=== PATIENT | female | born 1985 | race Hispanic/Latino ===

== ENCOUNTER 2018-01-24 19:20 | Inpatient (IN) | payer MEDICAID ==
[2018-01-24] MEDS ORDERED: LACTATED RINGERS 1000ML 1,000 ML IV PRN (21:06)
[2018-01-24] MEDS ORDERED: AMPICILLIN 2GM+NS 100ML 100 ML IV SCH (21:15)
[2018-01-24 21:40] LABS: BILIRUBIN,URINE NEGATIVE (NEGATIVE); COLOR,URINE YELLOW (YELLOW); GLUCOSE, URINE (UA) 100 mg/dL (NEGATIVE); KETONES,URINE 5 mg/dL (NEGATIVE); LEUKOCYTE ESTERASE ,URINE MODERATE (NEGATIVE); NITRATE,URINE NEGATIVE (NEGATIVE); OCCULT BLOOD,URINE SMALL (NEGATIVE); PROTEIN,URINE TRACE (NEGATIVE)
[2018-01-24 21:43] LABS: APPEARANCE,URINE CLOUDY (CLEAR)
[2018-01-24 22:04] LABS: RBC,URINE None Seen /HPF (0-1)
[2018-01-24 22:05] LABS: BACTERIA,URINE Many /HPF (None Seen); SQUAMOUS EPITHELIAL CELL,UR 30-50 /HPF (0-2); WBC,URINE 26-50 /HPF (0-1)
[2018-01-24] MEDS ORDERED: AMPICILLIN 2GM+NS 100ML 100 ML IV ONE (23:02)
[2018-01-24 23:04] LABS: AMPHET/METH SCREEN,URINE NEGATIVE (NEGATIVE); BARBITURATE SCREEN, URINE NEGATIVE (NEGATIVE); BENZODIAZEPINES SCREEN,URINE NEGATIVE (NEGATIVE); CANNABINOID SCREEN,URINE NEGATIVE (NEGATIVE); COCAINE SCREEN,URINE NEGATIVE (NEGATIVE); OPIATE SCREEN,URINE NEGATIVE (NEGATIVE); PHENCYCLIDINE SCREEN,URINE NEGATIVE (NEGATIVE)
[2018-01-24 23:51] LABS: HEMATOCRIT 35.6 % (36-48); MEAN CORPUSCULAR HEMOGLOBIN 30.4 pg (27.0-33.0); MEAN CORPUSCULAR HGB CONC 33.5 g/dL (32.0-36.0); MEAN CORPUSCULAR VOLUME 90.6 fL (79-99); PLATELET COUNT (AUTO) 96 K/uL (130-400); RED BLOOD CELL COUNT(AUTO) 3.93 MIL/uL (4.00-5.50); RED CELL DISTRIBUTION WIDTH 16.3 % (11.0-15.5); WHITE BLOOD COUNT (AUTO) 7.4 K/uL (4.8-10.8)
[2018-01-25] MEDS ORDERED: OXYTOCIN 10 USP UNITS/ML ONE ×2 (02:30→10:56)
[2018-01-25] MEDS ORDERED: LACTATED RINGERS 1000ML 1,000 ML IV ONE ×2 (02:30→10:55)
[2018-01-25] MEDS ORDERED: OXYTOCIN 10 USP UNITS/ML 20 UNIT in LACTATED RINGERS 1000ML 1,000 ML IV SCH (03:00)
[2018-01-25] MEDS: AMPICILLIN 1GM+NS 50ML 50 ML IV SCH ×3 (03:43→13:00)
[2018-01-25] MEDS ORDERED: LIDOCAINE HCL 1% 20 ML VIAL ONE (08:01)
[2018-01-25] MEDS: MEPERIDINE-PF 25 MG/ML SYG IVP SCH (08:52)
[2018-01-25] MEDS: PROMETHAZINE HCL 25 MG/ML 1ML AMPULE IM SCH (08:54)
[2018-01-25] MEDS ORDERED: OXYTOCIN-LR 20 UNITS/1000 ML 1,000 ML IV SCH (10:30)
[2018-01-25] MEDS ORDERED: BENZOCAINE/LANOLIN/ALOE VERA 60 ML AEROSOL TP PRN (10:30)
[2018-01-25] MEDS ORDERED: DIPH,PERTUSS(ACELL),TET VAC/PF 0.5 ML VIAL IM PRN (10:30)
[2018-01-25] MEDS ORDERED: LANOLIN 30GM OINTMENT TP PRN (10:30)
[2018-01-25] MEDS ORDERED: MEASLES/MUMPS/RUBELLA VACCINE, LIVE 0.5 ML/VIAL SQ PRN (10:30)
[2018-01-25] MEDS ORDERED: WITCH HAZEL 1 PAD TP PRN (10:30)
[2018-01-25 11:31] VITALS: BP 106/58
[2018-01-25] MEDS: IBUPROFEN 600 MG TABLET PO PRN ×2 (11:36→18:05)
[2018-01-25] MEDS ORDERED: FERR-82 PO (11:54)
[2018-01-25] MEDS ORDERED: GLYB5TAB8 PO (11:54)
[2018-01-25] MEDS ORDERED: PREN1COM14 PO (11:54)
[2018-01-25 15:55] VITALS: BP 123/57
[2018-01-25] MEDS ORDERED: ACETAMINOPHEN 325 MG TAB PO PRN (16:15)
[2018-01-25 20:48] VITALS: BP 108/60
[2018-01-25] MEDS: DOCUSATE SODIUM 100 MG CAP PO SCH (20:59)
[2018-01-25 23:31] VITALS: BP 103/52
[2018-01-26] MEDS: IBUPROFEN 600 MG TABLET PO PRN ×3 (03:41→18:00)
[2018-01-26 03:55] VITALS: BP 104/62
[2018-01-26 05:45] LABS: HEMATOCRIT 30.9 % (36-48); MEAN CORPUSCULAR HGB CONC 33.9 g/dL (32.0-36.0); MEAN CORPUSCULAR VOLUME 91.5 fL (79-99); PLATELET COUNT (AUTO) 87 K/uL (130-400); RED BLOOD CELL COUNT(AUTO) 3.38 MIL/uL (4.00-5.50); RED CELL DISTRIBUTION WIDTH 16.5 % (11.0-15.5); WHITE BLOOD COUNT (AUTO) 7.3 K/uL (4.8-10.8)
[2018-01-26 07:48] VITALS: BP 97/50
[2018-01-26 08:21] LABS: HEPATITIS Bs ANTIGEN SCREEN P Negative (Negative)
[2018-01-26] MEDS: MEPERIDINE-PF 25 MG/ML SYG IVP SCH (08:45)
[2018-01-26] MEDS: PROMETHAZINE HCL 25 MG/ML 1ML AMPULE IM SCH (08:45)
[2018-01-26] MEDS: DOCUSATE SODIUM 100 MG CAP PO SCH ×2 (09:10→20:48)
[2018-01-26 11:33] VITALS: BP 121/70
[2018-01-26 15:25] VITALS: BP 105/53
[2018-01-26 20:14] VITALS: BP 109/60
[2018-01-27 00:01] VITALS: BP 97/59
[2018-01-27 03:59] VITALS: BP 129/76
[2018-01-27 07:48] VITALS: BP 122/57
[2018-01-27] MEDS: DOCUSATE SODIUM 100 MG CAP PO SCH (09:11)
[2018-01-27] MEDS: IBUPROFEN 600 MG TABLET PO PRN ×2 (09:15→15:59)
[2018-01-27 11:45] VITALS: BP 125/71
[2018-01-27 15:56] VITALS: BP 138/83
== END 2018-01-27 16:05 | disposition home or self-care (01) | DRG 560 ==
LOC: LDH 19:20 → WSH 01-25 11:39
PROVIDERS: ADMIT Obstetrics & Gynecology; ATTEND Obstetrics & Gynecology
PROC: 10E0XZZ Delivery of Products of Conception, External Approach (ICD-10-PCS; principal; 2018-01-25)
PROC: 0KQM0ZZ Repair Perineum Muscle, Open Approach (ICD-10-PCS; 2018-01-25)
PROC: 10907ZC Drainage of Amniotic Fluid, Therapeutic from Products of Conception, Via Natural or Artificial Opening (ICD-10-PCS; 2018-01-25)
PROC: 3E0234Z Introduction of Serum, Toxoid and Vaccine into Muscle, Percutaneous Approach (ICD-10-PCS; 2018-01-25)
DX: O99.824 Streptococcus B carrier state complicating childbirth (principal); O24.425 Gestational diabetes mellitus in childbirth, controlled by oral hypoglycemic drugs; O69.81X0 Labor and delivery complicated by cord around neck, without compression, not applicable or unspecified; O70.1 Second degree perineal laceration during delivery; Z37.0 Single live birth; Z3A.39 39 weeks gestation of pregnancy; Z3A.40 40 weeks gestation of pregnancy; O77.0 Labor and delivery complicated by meconium in amniotic fluid; Z23 Encounter for immunization
CPT/HCPCS: 36415; 76805; 80305; 81001; 82947; 82948; 85027; 86592; 86850; 86900; 86901; 87340; 90715; A4351; J0290; J2175; J2550; J2590; J7120

== ENCOUNTER 2023-03-14 14:17 | Inpatient (IN) | payer MEDICAID, OTHER ==
[~2023-03-14] VITALS: Ht 165.1 cm; Wt 63.8 kg
[~2023-03-14 14:17] MED LIST: FERR-82 PO; GLYB5TAB8 PO; PREN1COM14 PO
[2023-03-14 16:00] LABS: BASOPHILS % (AUTO) 0.2 % (0.0-5.0); HEMATOCRIT 41.1 % (36-48); LYMPHOCYTES % (AUTO) 5.4 % (21.0-51.0); MEAN CORPUSCULAR HEMOGLOBIN 30.6 pg (27.0-33.0); MEAN CORPUSCULAR HGB CONC 33.3 g/dL (32.0-36.0); MEAN CORPUSCULAR VOLUME 91.7 fL (79-99); MONOCYTES % (AUTO) 3.8 % (3.0-13.0); NEUTROPHILS % (AUTO) 90.1 % (40.0-77.0); PLATELET COUNT (AUTO) 176 K/uL (130-400); RED BLOOD CELL COUNT(AUTO) 4.48 MIL/uL (4.00-5.50); WHITE BLOOD COUNT (AUTO) 17.2 K/uL (4.8-10.8)
[2023-03-14 16:22] LABS: ALANINE AMINOTRANSFERASE 11 U/L (12-78); ALBUMIN 3.7 g/dL (3.5-5.0); ASPARTATE AMINOTRANSFERASE 9 U/L (10-37); CARBON DIOXIDE 26 mmol/L (21-32); CHLORIDE 96 mmol/L (101-111); CREATININE 0.7 mg/dL (0.5-1.5); GLOMERULAR FILTR. RATE CALC 113 mL/min (>90); GLUCOSE,RANDOM 118 mg/dL (70-105); SODIUM SERUM 133 mmol/L (136-145); TOTAL PROTEIN, SERUM 7.9 g/dL (6.0-8.3); UREA NITROGEN, BLOOD 7 mg/dL (7-18)
[2023-03-14 16:30] LABS: LIPASE < 50 U/L (114-286)
[2023-03-14] MEDS ORDERED: ZOSYN 3.375GM+NS 50ML 50 ML IVPB STA (16:37)
[2023-03-14 16:38] LABS: APPEARANCE,URINE CLOUDY (CLEAR); BILIRUBIN,URINE NEGATIVE (NEGATIVE); COLOR,URINE LIGHT-ORANGE (YELLOW); GLUCOSE, URINE (UA) NEGATIVE (NEGATIVE); KETONES,URINE NEGATIVE (NEGATIVE); LEUKOCYTE ESTERASE ,URINE 75 Leu/uL (NEGATIVE); NITRATE,URINE NEGATIVE (NEGATIVE); OCCULT BLOOD,URINE SMALL (NEGATIVE); PH,URINE 5.5 (5.0-8.0); PROTEIN,URINE 20 mg/dL (NEGATIVE); UROBILINOGEN,URINE 0.2 mg/dL (0.2-1.0)
[2023-03-14 16:43] LABS: HCG,QUALITATIVE URINE NEGATIVE (NEGATIVE)
[2023-03-14 16:52] LABS: BACTERIA,URINE MOD /HPF (None Seen); MUCUS,URINE MOD LPF (None Seen); SQUAMOUS EPITHELIAL CELL,UR MOD /HPF (0-2)
[2023-03-14] MEDS ORDERED: MORPHINE 4 MG SYG IVP ONE (17:00)
[2023-03-14] MEDS ORDERED: 0.9%NACL 1000ML 1,710 ML IV ONE (17:00)
[2023-03-14] MEDS ORDERED: PANTOPRAZOLE 40 MG/VIAL IVP ONE (17:00)
[2023-03-14] MEDS ORDERED: ACETAMINOPHEN 500 MG TABLET PO ONE (17:00)
[2023-03-14] MEDS ORDERED: POTASSIUM BICARB/CIT AC 25 MEQ TABLET.EFF PO ONE (17:00)
[2023-03-14] MEDS ORDERED: KETOROLAC 30MG VIAL (30MG/ML) IVP ONE (17:00)
[2023-03-14] MEDS ORDERED: IOHEXOL-350 75 ML VIAL IV ONE (17:20)
[2023-03-14] MEDS ORDERED: ACETAMINOPHEN 325 MG TAB PO PRN ×2 (19:30)
[2023-03-14] MEDS ORDERED: ONDANSETRON 4MG INJ IV PRN (19:30)
[2023-03-14] MEDS ORDERED: ZOSYN 3.375GM +NS 50ML IVPB SCH (19:30)
[2023-03-14] MEDS ORDERED: 0.9%NACL 50ML IV SCH (21:00)
[2023-03-14] MEDS: LACTATED RINGERS 1000ML 1,000 ML IV SCH (21:19)
[2023-03-14] MEDS: FAMOTIDINE 20MG VIAL IV SCH (21:20)
[2023-03-14] MEDS: KETOROLAC 15MG/ML VIAL (15MG/ML) IM PRN (21:20)
[2023-03-14] MEDS ORDERED: MAGNESIUM 2GM PREMIX 50ML 50 ML IV PRN (21:30)
[2023-03-14] MEDS ORDERED: POTASSIUM CHLORIDE 20MEQ/100ML 100 ML IV PRN (21:30)
[2023-03-14] MEDS: METRONIDAZOLE 500MG/100ML BAG 100 ML IVPB SCH (23:35)
[2023-03-15] MEDS ORDERED: POTASSIUM CHLORIDE 10% ELIXIR 20 MEQ/15 ML UDCUP PO PRN (00:30)
[2023-03-15] MEDS ORDERED: POTASSIUM CHLORIDE 10MEQ/100ML 100 ML IV PRN (00:30)
[2023-03-15] MEDS: KCL 20 MEQ ERTAB PO PRN ×2 (02:04→20:52)
[2023-03-15] MEDS: ZOSYN 3.375GM +NS 50ML IVPB SCH ×3 (02:04→18:22)
[2023-03-15] MEDS: KETOROLAC 15MG/ML VIAL (15MG/ML) IM PRN ×2 (03:33→13:17)
[2023-03-15] MEDS: METRONIDAZOLE 500MG/100ML BAG 100 ML IVPB SCH ×3 (06:23→23:18)
[2023-03-15 07:26] LABS: MEAN CORPUSCULAR HEMOGLOBIN 30.5 pg (27.0-33.0); MEAN CORPUSCULAR HGB CONC 32.8 g/dL (32.0-36.0); RED BLOOD CELL COUNT(AUTO) 3.44 MIL/uL (4.00-5.50); RED CELL DISTRIBUTION WIDTH 14.5 % (11.0-15.5); WHITE BLOOD COUNT (AUTO) 12.7 K/uL (4.8-10.8)
[2023-03-15 07:38] LABS: INR 0.94 (0.85-1.15)
[2023-03-15 07:39] LABS: PARTIAL THROMBOPLASTIN TIME 37.9 SEC (26.3-35.5)
[2023-03-15 07:41] LABS: ALBUMIN 2.5 g/dL (3.5-5.0); BILIRUBIN,DIRECT 0.3 mg/dL (0.0-0.3); CREATININE 0.7 mg/dL (0.5-1.5); MAGNESIUM 1.6 mg/dL (1.80-2.40); POTASSIUM 3.3 mmol/L (3.5-5.1)
[2023-03-15] MEDS: FAMOTIDINE 20MG VIAL IV SCH (07:51)
[2023-03-15] MEDS: LACTATED RINGERS 1000ML 1,000 ML IV SCH ×2 (08:42→18:21)
[2023-03-15] MEDS: PANTOPRAZOLE 40 MG/VIAL IVP SCH (08:46)
[2023-03-15 09:33] LABS: CRP QUANTITATIVE 226.7 mg/L (0.00-9.0)
[2023-03-15] MEDS ORDERED: MORPHINE 2 MG SYG IVP PRN (21:30)
[2023-03-15] MEDS ORDERED: MORPHINE 2 MG SYG ONE (21:30)
[2023-03-15 23:30] VITALS: BP 137/70
[2023-03-16] MEDS: ZOSYN 3.375GM +NS 50ML IVPB SCH ×2 (00:38→08:18)
[2023-03-16 05:00] VITALS: BP 104/57
[2023-03-16] MEDS: METRONIDAZOLE 500MG/100ML BAG 100 ML IVPB SCH ×2 (06:24→14:00)
[2023-03-16 06:29] LABS: BASOPHILS % (AUTO) 0.3 % (0.0-5.0); EOSINOPHILS % (AUTO) 0.6 % (0.0-8.0); HEMATOCRIT 30.4 % (36-48); LYMPHOCYTES % (AUTO) 12.3 % (21.0-51.0); MEAN CORPUSCULAR HEMOGLOBIN 30.5 pg (27.0-33.0); MEAN CORPUSCULAR HGB CONC 32.6 g/dL (32.0-36.0); MEAN CORPUSCULAR VOLUME 93.5 fL (79-99); MONOCYTES % (AUTO) 5.7 % (3.0-13.0); NEUTROPHILS % (AUTO) 80.7 % (40.0-77.0); PLATELET COUNT (AUTO) 132 K/uL (130-400); RED BLOOD CELL COUNT(AUTO) 3.25 MIL/uL (4.00-5.50); RED CELL DISTRIBUTION WIDTH 14.5 % (11.0-15.5); WHITE BLOOD COUNT (AUTO) 9.6 K/uL (4.8-10.8)
[2023-03-16 06:51] LABS: ALBUMIN 2.4 g/dL (3.5-5.0); CREATININE 0.6 mg/dL (0.5-1.5); POTASSIUM 3.5 mmol/L (3.5-5.1); TOTAL PROTEIN, SERUM 5.9 g/dL (6.0-8.3)
[2023-03-16 08:00] VITALS: BP 121/80
[2023-03-16] MEDS: PANTOPRAZOLE 40 MG/VIAL IVP SCH (08:17)
[2023-03-16] MEDS: LACTATED RINGERS 1000ML 1,000 ML IV SCH ×2 (08:18→13:00)
[2023-03-16] MEDS: KCL 20 MEQ ERTAB PO PRN ×2 (08:55→11:39)
[2023-03-16] MEDS ORDERED: AMOX1TAB15 PO (10:02)
[2023-03-16] MEDS ORDERED: CLAR-44 PO (10:02)
[2023-03-16] MEDS ORDERED: OMEP20CA12 PO (10:02)
[2023-03-16 12:00] VITALS: BP 142/83
== END 2023-03-16 18:00 | disposition home or self-care (01) | DRG 872 ==
LOC: EDH 14:17 → EDHIP 14:18 → 4CH 03-15 22:45
PROVIDERS: ADMIT Hospitalist; ATTEND Hospitalist
DX: A41.9 Sepsis, unspecified organism (principal); N39.0 Urinary tract infection, site not specified; E87.1 Hypo-osmolality and hyponatremia; E87.6 Hypokalemia; E86.0 Dehydration; K52.9 Noninfective gastroenteritis and colitis, unspecified; F10.20 Alcohol dependence, uncomplicated; E86.1 Hypovolemia; E83.42 Hypomagnesemia; E78.5 Hyperlipidemia, unspecified; F17.210 Nicotine dependence, cigarettes, uncomplicated; Z82.49 Family history of ischemic heart disease and other diseases of the circulatory system; Z83.3 Family history of diabetes mellitus; Z86.32 Personal history of gestational diabetes
CPT/HCPCS: 36415; 74177; 80048; 80053; 80061; 80076; 81001; 81025; 82728; 83036; 83605; 83615; 83690; 83735; 84132; 84145; 84703; 85025; 85027; 85610; 85651; 85730; 86140; 86677; 87040; 87088; C9113; G0378; J1885; J2270; J2543; J3475; J3490; J7030; J7120; Q9967